=== PATIENT | male | born 1945 | race Caucasian/White ===

== ENCOUNTER 2022-01-14 18:46 | Emergency (ER) | payer MEDICARE, OTHER ==
[2022-01-14] MEDS: HYDROmorphone 0.5 MG/0.5 ML Syringe IVPUSH ONE (19:23)
[2022-01-14] MEDS: Acetaminophen 500 MG Tab PO ONE (20:34)
[2022-01-14] MEDS: Take Home: traMADol 50 MG, 4 Tab Pack PO ONE (21:34)
== END 2022-01-14 21:53 | disposition home or self-care (01) ==
LOC: VM.ED 18:46
DX: S22.42XA Multiple fractures of ribs, left side, initial encounter for closed fracture (principal); I10 Essential (primary) hypertension; W18.09XA Striking against other object with subsequent fall, initial encounter
CPT/HCPCS: 96374; 99283; A9270; J1170

== ENCOUNTER 2025-01-01 18:03 | Emergency (ER) | payer MEDICARE, OTHER ==
[2025-01-01 18:28] LABS: BASOPHILS ABSOLUTE AUTO 0.0 x10^3/uL (0.0-0.2); BASOPHILS PERCENT AUTO 0.2 % (0.2-1.2); EOSINOPHILS ABSOLUTE AUTO 0.3 x10^3/uL (0.0-0.5); EOSINOPHILS PERCENT AUTO 3.1 % (0.0-4.0); IMMATURE GRAN ABSOLUTE AUTO 0.01 x10^3/uL (0.00-0.07); IMMATURE GRAN PERCENT AUTO 0.10 % (0.00-0.43); LYMPHOCYTES ABSOLUTE AUTO 2.9 x10^3/uL (1.0-4.8); LYMPHOCYTES PERCENT AUTO 34.6 % (25.0-50.0); MONOCYTES ABSOLUTE AUTO 0.8 x10^3/uL (0.0-0.8); MONOCYTES PERCENT AUTO 8.9 % (2.0-11.0); NEUTROPHILS ABSOLUTE AUTO 4.5 x10^3/uL (1.8-7.7); NEUTROPHILS PERCENT AUTO 53.1 % (50.0-80.0); PLATELET COUNT,PLT 200 x10^3/uL (130-400); RED BLOOD CELL COUNT 4.23 x10^6/uL (4.5-6.0); WHITE BLOOD CELL COUNT,WBC 8.4 x10^3/uL (4.0-10.0)
[2025-01-01 18:42] LABS: INR 1.0 (0.9-1.1)
[2025-01-01 18:50] LABS: A/G RATIO 1.30; ALANINE AMINOTRANSFERASE,ALT 24 U/L (16-63); ASPARTATE AMNIOTRANSFERASE,AST 18 U/L (15-37); BILIRUBIN TOTAL 0.5 mg/dL (0.2-1.0); BLOOD UREA NITROGEN,BUN 25 mg/dL (7-18); CARBON DIOXIDE,CO2 30 mmol/L (21-32); CHLORIDE,CL 103 mmol/L (98-107); CREATININE 1.3 mg/dL (0.70-1.30); ESTIMATED GFR 56 mL/min (>=60); GLUCOSE RANDOM 96 mg/dL (70-99); POTASSIUM,K 3.4 mmol/L (3.5-5.1); PROTEIN TOTAL,TP 6.9 g/dL (6.4-8.2); SODIUM,NA 141 mmol/L (136-145)
== END 2025-01-01 20:24 | disposition home or self-care (01) ==
LOC: VM.ED 18:03
DX: R55 Syncope and collapse (principal); I10 Essential (primary) hypertension; Z79.899 Other long term (current) drug therapy
CPT/HCPCS: 71046; 80053; 82947; 84484; 85025; 85610; 93005; 93010; 99284; 99285; A9270-GY

== ENCOUNTER 2025-01-13 09:55 | Emergency (ER) | payer MEDICARE, OTHER ==
[2025-01-13] MEDS ORDERED: Sodium Chloride 0.9% 10 ML Syringe FLUSH PRN (10:05)
[2025-01-13 10:19] LABS: BASOPHILS ABSOLUTE AUTO 0.0 x10^3/uL (0.0-0.2); BASOPHILS PERCENT AUTO 0.4 % (0.2-1.2); EOSINOPHILS ABSOLUTE AUTO 0.2 x10^3/uL (0.0-0.5); EOSINOPHILS PERCENT AUTO 1.8 % (0.0-4.0); IMMATURE GRAN ABSOLUTE AUTO 0.01 x10^3/uL (0.00-0.07); IMMATURE GRAN PERCENT AUTO 0.10 % (0.00-0.43); LYMPHOCYTES ABSOLUTE AUTO 2.7 x10^3/uL (1.0-4.8); LYMPHOCYTES PERCENT AUTO 32.2 % (25.0-50.0); MONOCYTES ABSOLUTE AUTO 0.5 x10^3/uL (0.0-0.8); MONOCYTES PERCENT AUTO 6.6 % (2.0-11.0); NEUTROPHILS ABSOLUTE AUTO 4.9 x10^3/uL (1.8-7.7); NEUTROPHILS PERCENT AUTO 58.9 % (50.0-80.0); PLATELET COUNT,PLT 181 x10^3/uL (130-400); RED BLOOD CELL COUNT 4.60 x10^6/uL (4.5-6.0); WHITE BLOOD CELL COUNT,WBC 8.2 x10^3/uL (4.0-10.0)
[2025-01-13] MEDS: hydrALAZINE 20 MG/ML SDV IVPUSH ONE (10:39)
[2025-01-13 10:40] LABS: INR 1.0 (0.9-1.1)
[2025-01-13 10:42] LABS: A/G RATIO 1.28; ALANINE AMINOTRANSFERASE,ALT 25 U/L (16-63); ASPARTATE AMNIOTRANSFERASE,AST 18 U/L (15-37); BILIRUBIN TOTAL 0.7 mg/dL (0.2-1.0); BLOOD UREA NITROGEN,BUN 22 mg/dL (7-18); CARBON DIOXIDE,CO2 32 mmol/L (21-32); CHLORIDE,CL 104 mmol/L (98-107); CREATINE KINASE,CK 64 U/L (39-308); CREATININE 1.4 mg/dL (0.70-1.30); GLUCOSE RANDOM 96 mg/dL (70-99); POTASSIUM,K 3.7 mmol/L (3.5-5.1); PROTEIN TOTAL,TP 7.3 g/dL (6.4-8.2); SODIUM,NA 141 mmol/L (136-145)
[2025-01-13 10:43] LABS: ESTIMATED GFR 51 mL/min (>=60)
[2025-01-13] MEDS: Enalaprilat 1.25 MG/ML SDV IVPUSH ONE ×2 (12:07→13:23)
[2025-01-13] MEDS: Iopamidol 755 Mg/ML 100 ML Bottle IVPUSH ONE (13:20)
== END 2025-01-13 14:49 | disposition short-term general hospital (02) ==
LOC: VM.ED 09:55
DX: H53.2 Diplopia (principal); I16.9 Hypertensive crisis, unspecified; Z88.8 Allergy status to other drugs, medicaments and biological substances; Z79.899 Other long term (current) drug therapy
CPT/HCPCS: 70450; 70496; 80053; 82550; 84484; 85025; 85610; 85730; 93005; 96374; 96375; 99285-25; J0360; J3490; Q9967